=== PATIENT | female | born 1930 | race Two or more races ===

== ENCOUNTER 2019-09-07 23:58 | Emergency (ER) | payer MEDICARE, MEDICAID ==
[~2019-09-07] VITALS: Ht 157.5 cm; Wt 72.6 kg
[2019-09-08 00:08] VITALS: Ht 157.5 cm; Wt 72.6 kg
[2019-09-08 01:33] VITALS: BP 128/66
== END 2019-09-08 01:33 | disposition home or self-care (01) ==
LOC: ED 23:58
DX: J40 Bronchitis, not specified as acute or chronic (principal); I10 Essential (primary) hypertension
CPT/HCPCS: Q0092